=== PATIENT | male | born 1975 | race Caucasian/White ===

== ENCOUNTER 2017-03-05 09:58 | Emergency (ER) | payer BC ==
[2017-03-05 10:10] VITALS: BMI 27.2
--- NOTE | 2017-03-05 10:40 | PDOC ---
History of Present Illness - General History Source: Patient Exam Limitations: No Limitations - History of Present Illness Initial Comments: 03/05/17 11:02 The patient is a 41 year old male, with a significant past medical history of anxiety, who presents to the emergency department complaining of a headache for approximately 1 week. The patient reports his headache is localized frontally and is nonradiating in nature. He reports he first noted headache after sexual intercourse last . He reports his headache is exacerbated while exercising, specifically while doing push-ups. Patient reports a history of pre- hypertension, for which his PCP advised he lose 20 pounds. The patient has never taken any medications for hypertension, and has since lost the weight. He denies any changes in vision, dizziness, fever, or chills. He denies any chest pain, shortness of breath, diaphoresis, or palpitations. Patient states the last time he had a similar headache it was brought on by the stress he experienced at work, but his stress has since resolved. He reports some recent travel. He reports some sinus discomfort and green nasal discharge during the past month. Allergies: NKDA Past Surgical History: None reported Social History: Former smoker. No ETOH or drug use. <Malathi Alvarez - Last Filed: 03/05/17 14:43> <Luciano Carvajal - Last Filed: 03/05/17 16:42> - General Chief Complaint: Headache Stated Complaint: MASSIVE HEADACHE Time Seen by Provider: 03/05/17 10:39 Past History <Malathi Alvarez - Last Filed: 03/05/17 14:43> - Past Medical History Psychiatric Problems: Yes (anxiety) - Immunization History Immunization Up to Date: Yes - Psycho/Social/Smoking Cessation Hx Anxiety: No Suicidal Ideation: No Smoking History: Former smoker Have you smoked in the past 12 months: Yes Information on smoking cessation initiated: No Hx Alcohol Use: Yes Drug/Substance Use Hx: No Substance Use Type: None <Luciano Carvajal - Last Filed: 03/05/17 16:42> - Past Medical History Allergies/Adverse Reactions: Allergies Allergy/AdvReac Type Severity Reaction Status Date / Time No Known Allergies Allergy Verified 03/05/17 10:06 Home Medications: Ambulatory Orders NK [No Known Home Medication] 05/02/16 Review of Systems - Review of Systems Able to Perform ROS?: Yes Comments:: 03/05/17 11:03 GENERAL/CONSTITUTIONAL: No fever or chills. No weakness. HEAD, EYES, EARS, NOSE AND THROAT: Yes: +sinus pressure, +nasal discharge. No change in vision. No ear pain or discharge. No sore throat. CARDIOVASCULAR: No chest pain or shortness of breath. RESPIRATORY: No cough, wheezing, or hemoptysis. GASTROINTESTINAL: No nausea, vomiting, diarrhea or constipation. GENITOURINARY: No dysuria, frequency, or change in urination. MUSCULOSKELETAL: No joint or muscle swelling or pain. No neck or back pain. SKIN: No rash NEUROLOGIC: Yes: +headache. No vertigo, loss of consciousness, or change in strength/sensation. ENDOCRINE: No increased thirst. No abnormal weight change. HEMATOLOGIC/LYMPHATIC: No anemia, easy bleeding, or history of blood clots. ALLERGIC/IMMUNOLOGIC: No hives or skin allergy. <Zulema Alvarezomilsy - Last Filed: 03/05/17 14:43> *Physical Exam - Vital Signs Last Vital Signs Temp Pulse Resp BP Pulse Ox 97.9 F 81 18 157/102 99 03/05/17 10:06 03/05/17 10:06 03/05/17 10:06 03/05/17 10:06 03/05/17 10:06 - Physical Exam Comments: 03/05/17 11:03 GENERAL: Awake, alert, and fully oriented, in no acute distress HEAD: No signs of trauma EYES: PERRLA, EOMI, sclera anicteric, conjunctiva clear ENT: Auricles normal inspection, hearing grossly normal, nares patent, oropharynx clear without exudates. Moist mucosa NECK: Normal ROM, supple, no lymphadenopathy, JVD, or masses LUNGS: Breath sounds equal, clear to auscultation bilaterally. No wheezes, and no crackles HEART: Regular rate and rhythm, normal S1 and S2, no murmurs, rubs or gallops ABDOMEN: Soft, nontender, normoactive bowel sounds. No guarding, no rebound. No masses EXTREMITIES: Normal range of motion, no edema. No clubbing or cyanosis. No cords, erythema, or tenderness NEUROLOGICAL: Cranial nerves II through XII grossly intact. Normal speech, normal gait SKIN: Warm, Dry, normal turgor, no rashes or lesions noted. <Malathi Alvarez - Last Filed: 03/05/17 14:43> - Vital Signs Last Vital Signs Temp Pulse Resp BP Pulse Ox 97.9 F 81 18 157/102 99 03/05/17 10:06 03/05/17 10:06 03/05/17 10:06 03/05/17 10:06 03/05/17 10:06 <Luciano Carvajal - Last Filed: 03/05/17 16:42> Heart Score/ECG Review - ECG Intrepretation Comment:: 03/05/17 14:43 Vent Rate: 67 bpm IMPRESSION: Normal sinus rhythm. <Malathi Alvarez - Last Filed: 03/05/17 14:43> ED Treatment Course - LABORATORY CBC & Chemistry Diagram: 03/05/17 10:47 03/05/17 10:47 - RADIOLOGY Radiograph Interpretation: 03/05/17 12:13 EXAM: Head CT INTERPRETED BY: Dr. Thornton REVIEWED BY: Dr. Carvajal IMPRESSION: Unremarkable CT examination of the head, no evidence of acute intracranial hemorrhage, edema, midline shift, mass effect, acute ischemic changes, skull fracture. EXAM: CXR INTERPRETED BY: Dr. Thornton REVIEWED BY: Dr. Carvajal IMPRESSION: No evidence of active pulmonary disease. <Malathi Alvarez - Last Filed: 03/05/17 14:43> - LABORATORY CBC & Chemistry Diagram: 03/05/17 10:47 03/05/17 10:47 <Luciano Carvajal - Last Filed: 03/05/17 16:42> *DC/Admit/Observation/Transfer - Attestations Scribe Attestion: 03/05/17 11:03 Documentation prepared by Malathi Alvarez, acting as medical billing manager for Luciano Carvajal DO. <Malathi Alvarez - Last Filed: 03/05/17 14:43> - Discharge Dispostion Admit: No - Attestations Physician Attestion: 03/05/17 10:40 I, Dr. Luciano Carvajal, attest that this document has been prepared under my direction and personally reviewed by me in its entirety. I further attest, that it accurately reflects all work, treatment, procedures and medical decision -making performed by me. <Luciano Carvajal - Last Filed: 03/05/17 16:42> Diagnosis at time of Disposition: Uncontrolled hypertension - Discharge Dispostion Disposition: HOME Condition at time of disposition: Improved - Patient Instructions Printed Discharge Instructions: DI for High Blood Pressure Additional Instructions: Edward- You need to be on BP medicine. See your doctor as soon as possible. Take these labs and imaging reports with you. Best- Dr. Luciano Carvajal
[2017-03-05] MEDS ORDERED: hydrALAZINE HCL 20 MG/ML VIAL IVPUSH ONE (10:42)
[2017-03-05] MEDS ORDERED: hydrALAZINE HCL 20 MG/ML VIAL ONE (10:49)
[2017-03-05 11:40] LABS: ALBUMIN 4.3 g/dl (3.4-5.0); ANION GAP 4 (8-16); BILIRUBIN,TOTAL 0.8 mg/dL (0.2-1.0); CALCIUM 9.2 mg/dL (8.5-10.1); CO2 31 mmol/L (21-32); CREATININE 0.8 mg/dL (0.7-1.3); GLUCOSE,RANDOM 90 mg/dL (74-106); SGOT/AST 23 U/L (15-37); SGPT/ALT 38 U/L (12-78); TOT PROT 7.4 g/dl (6.4-8.2)
[2017-03-05 11:43] LABS: ALK PHOS 70 U/L (45-117); CPK 189 IU/L (39-308); TROPONIN I < 0.02 ng/ml (0.00-0.05)
[2017-03-05 11:48] LABS: INR 1.01 (0.82-1.09); PROTHROMBIN TIME (PATIENT) 11.1 SEC (9.98-11.88)
[2017-03-05 11:52] LABS: BASOPHIL 0.6 % (0-2.0); EOSINOPHIL 3.7 % (0-4.5); MCH 31.1 pg (25.7-33.7); MCHC 33.5 g/dl (32.0-35.9); MEAN PLT VOLUME 10.1 fl (7.5-11.1); NEUTROPHILS 66.9 % (42.8-82.8); PLATELET COUNT 169 K/MM3 (134-434); RDW 13.5 % (11.9-15.9); WHITE BLOOD COUNT 5.3 K/mm3 (4.0-10.0)
[2017-03-05] MEDS ORDERED: ONDANSETRON 4 MG/2 ML VIAL IVPUSH ONE (11:58)
[2017-03-05] MEDS ORDERED: morphine CARPU-JECT 4 MG/1 ML DISP.SYRIN IVPUSH ONE (11:58)
[2017-03-05] MEDS ORDERED: morphine CARPU-JECT 4 MG/1 ML DISP.SYRIN ONE (11:59)
[2017-03-05] MEDS ORDERED: ONDANSETRON 4 MG/2 ML VIAL ONE (12:00)
--- NOTE | 2017-03-05 14:34 | EKG ---
Test Reason : Blood Pressure : / mmHG Vent. Rate : 067 BPM Atrial Rate : 067 BPM P-R Int : 148 ms QRS Dur : 088 ms QT Int : 390 ms P-R-T Axes : 049 027 020 degrees QTc Int : 412 ms NORMAL SINUS RHYTHM NORMAL ECG WHEN COMPARED WITH ECG OF 02-MAY-2016 09:11, NO SIGNIFICANT CHANGE WAS FOUND Confirmed by STEPHANIE WHITTAKER MD ([id number]) on 03/05/2017 2:33:55 PM Referred By: Confirmed By:STEPHANIE WHITTAKER MD
[2017-03-05 15:19] VITALS: TEMP 98.1
[2017-03-05 16:53] VITALS: BP 120/81; PULSE 65
== END 2017-03-05 16:53 | disposition home or self-care (01) ==
LOC: JER 09:58
PROC: 3E033GC Introduction of Other Therapeutic Substance into Peripheral Vein, Percutaneous Approach (ICD-10-PCS; principal; 2017-03-05)
PROC: 3E033NZ Introduction of Analgesics, Hypnotics, Sedatives into Peripheral Vein, Percutaneous Approach (ICD-10-PCS; 2017-03-05)
DX: I10 Essential (primary) hypertension (principal)
CPT/HCPCS: 36415; 70450-TC; 70496-TC; 71010-TC; 80053; 82553; 84484; 85025; 85610; 93005; 93010; 99284-25